=== PATIENT | female | born 1960 ===

== ENCOUNTER 2022-04-30 10:54 | Inpatient (IN) | payer MEDICAID ==
[~2022-04-30] VITALS: Ht 154.9 cm; Wt 55.1 kg
[2022-04-30] MEDS ORDERED: PLAVIX 75MG TAB75 MG PO (14:37)
[2022-04-30] MEDS ORDERED: LIPITOR 40MG TA40 MG PO (14:38)
[2022-04-30] MEDS ORDERED: TOPROL XL 25MG25 MG PO (14:39)
[2022-04-30] MEDS ORDERED: ATIVAN 0.50.5 MG/TAB PO (14:40)
[2022-04-30] MEDS ORDERED: PROAIR RES117 MCG/Ac IH (14:40)
[2022-04-30] MEDS ORDERED: FLONASEALLERGY NS (14:41)
[2022-04-30] MEDS ORDERED: MIRALAX PA17 GM/Dose PO (14:42)
[2022-04-30] MEDS ORDERED: COLACE 100100 MG/CAP PO (14:42)
[2022-04-30] MEDS ORDERED: ZOFRAN ODT4 MG PO (14:43)
[2022-04-30] MEDS ORDERED: ZESTRIL 20MG TA20 MG PO (14:45)
[2022-04-30] MEDS ORDERED: ASPIRIN 81M81 MG/TA2 PO (14:46)
[2022-04-30] MEDS ORDERED: KEPPRA 500MG500 MG PO (14:47)
[2022-04-30] MEDS ORDERED: ZOLOFT 25MG25 MG PO (14:47)
[2022-04-30] MEDS ORDERED: PROTONIX20 MG PO (14:48)
[2022-04-30] MEDS ORDERED: CARAFATE 1GM1 G PO (14:49)
[2022-04-30] MEDS ORDERED: LEVOXYL0.075 MG PO (14:50)
[2022-04-30] MEDS ORDERED: B-12 500 MCG PO (14:51)
[2022-04-30 17:25] VITALS: BP 109/66; PULSE 79; TEMP 99.5
--- NOTE | 2022-04-30 17:52 | NUR ---
New pt arrived via stretcher from [facility] s/p CVA. Pt is able to move all extremities but has rt. sided weakness/hemiparesis. She is alert and oriented and answer questions appropriately. Her skin is intact. Pt reports falling while at [facility] but was not injured during her fall. She has a small incision (healed) on her left chest s/p loop recorder placement on 04/23/22. Per transfer report, pt is incontinent of bowel and bladder, wears pullups during the day and uses a pure wick during sleep. Pt wears glasses and has upper dentures only. She denies having any valuables w/ her. Orientation provided to room/unit/call system. Call light is in her reach. Bed alarm is on.
[2022-04-30 18:00] VITALS: BP 109/66; PULSE 89; TEMP 99.5
--- NOTE | 2022-05-01 05:00 | NUR ---
pt incontinent of bladder x2 tonight, urine very strong, foul smelling. notified Lisa VILLALPANDO, order obtained for straight cath UA, pt has allergy to betadine, so tala area cleansed with soap and water. specimen obtained using 16F st cath and sterile technique. pt tolerated well.
[2022-05-01 05:34] VITALS: BP 105/68; PULSE 88; TEMP 98.6
[2022-05-01 05:34] LABS: COLLECTION METHOD CATHETER
[2022-05-01 05:41] LABS: PH 6.5 (5.0-8.5); URINE APPEARANCE Hazy (CLEAR/HAZY); URINE BLOOD Negative (NEGATIVE); URINE COLOR Yellow (YELLOW); URINE GLUCOSE Negative (NEGATIVE); URINE KETONE Negative (NEGATIVE); URINE NITRATE Positive (NEGATIVE); URINE PROTEIN(semi-quant) Negative (NEGATIVE); URINE UROBILINOGEN 0.2 E.U/dL (0.2-1.0)
[2022-05-01 05:42] LABS: MUCOUS Present (NOT PRESENT); SQUAMOUS EPITHELIAL 0-2 /hpf (0-10); URINE BACTERIA Rare /hpf (NONE SEEN); URINE RBC 0-2 /hpf (0-2)
[2022-05-01 07:12] LABS: CALCIUM 9.3 mg/dL (8.4-10.2); CREATININE, serum 0.88 mg/dL (0.57-1.11); POTASSIUM 4.4 mmol/L (3.5-4.5)
--- NOTE | 2022-05-01 08:59 | NUR ---
PATIENT ALERT AND ORIENTED X4. VSS. PATIENT HERE FOR CVA. PATIENT DENIES ANY PAIN. PATIENT DISPLAYS SOME EXPRESSIVE APHASIA. ASSESSMENT PERFORMED. AM MEDS ADMINISTERED. BED ALARM ACTIVATED. CALL LIGHT IN REACH. PATIENT AWAITING BREAKFAST.
--- NOTE | 2022-05-01 12:02 | NUR ---
stopped by and visited briefly with patient. Nothing else needed at this time.
[2022-05-01 17:20] VITALS: BP 108/60; PULSE 91; TEMP 96.3
--- NOTE | 2022-05-01 17:44 | NUR ---
PATIENT STARTED ON KEFLEX FOR UTI.
--- NOTE | 2022-05-01 20:00 | NUR ---
PT RESTING IN BED A&O. DENIES PAIN. RT SIDE HEMIPARESIS. ABLE TO SPEECH CORRECTION CONSULTANT RT HAND. TOUCH NOSE WITH INDEX FINGER ALTHOUGH TIME FRAME LONG. PT HAS MILDLY DELAYED VERBAL RESPONSE TO QUESTIONS. HAD LOOSE MED BROWN INCONTINENT STOOL. CALL LIGHT IN REACH. BED ALARM SET.
[2022-05-02] VITALS (38 sets, daily range): BP systolic 100–124; BP diastolic 56–73; PULSE 78–136; TEMP 98.3; O2SAT 70–100
--- NOTE | 2022-05-02 06:51 | NUR ---
Shift report received from second shift supervisor RN. Pt sleeping supine in bed. Resp. even and unlabored. Call light within reach. Bed alarm is on.
--- NOTE | 2022-05-02 08:13 | NUR ---
Pt sitting up in bed eating breakfast independently. She denies pain or discomfort. She reports sleeping well during the night. Denies other needs. Call light is in her reach. Bed alarm is on.
[2022-05-02 09:18] LABS: BASO # 0.1 K/mm3 (0.0-0.2); BASO % 1.1 % (0.0-2.0); EOS # 0.5 K/mm3 (0.0-0.7); EOS % 3.7 % (0.0-4.0); GRAN # 7.7 K/mm3 (1.4-6.5); GRAN % 58.4 % (42.2-75.2); HEMATOCRIT 40.1 % (37.0-47.0); HEMOGLOBIN 12.8 g/dl (12.5-16.0); LYMPH # 3.7 K/mm3 (1.2-3.4); LYMPH % 28.2 % (20.0-51.0); MEAN CELL VOLUME 94 fl (80.0-100.0); MEAN CORPUSCULAR HEMOGLOBIN 30 pg (27-31); MEAN CORPUSCULAR HGB CONC 32 g/dl (33.0-37.0); MONO # 1.1 K/mm3 (0.1-0.6); MONO % 8.2 % (1.7-9.3); PLATELET COUNT 676 K/mm3 (130-400); RED BLOOD COUNT 4.29 M/mm3 (4.10-5.30)
--- NOTE | 2022-05-02 09:25 | NUR ---
At approx 0850 nurse in room to check on pt. Pt noted to be holding her breath and clutching her left chest. Pt reporting gas pains and becoming tearful. Pt sat up in bed and charge nurse notified. Charge nurse in room, CAT call made, Hospitalist notified. Nitro given x 3. Zofran given. IV started in LFA by ICU nurse. Pt transferred to ICU. Son Luke Thomas notified.
--- NOTE | 2022-05-02 09:27 | NUR ---
this nurse was called to room by VIANEY Crystal stating patient is c/o chest pain at 0850, personnel supervisor notified and CAT call called at 854, crash cart brought to room and patientplaced on monitor by ICU nurse, at 900 nitro 0.4mg SL given, at 903 Dr Arnold to room, Nitro 0.4mg SL given at 905, lab in to draw blood at 908, Dr Arnold remains at bedside, patient also experiencing nausea and scan amount of emesis, INT started by ICU nurse at 914, Zofran 8mg and Morphine 2mg slow IV and third dose of nitro given, see eMAR for times, EKG was completed, see report gor time, chest xray completed, patient transferred per bed at 09 accompaniened by ICU nurse
[2022-05-02 09:36] LABS: BILIRUBIN,TOTAL 0.3 mg/dL (0.2-1.2); CALCIUM 9.9 mg/dL (8.4-10.2); CREATININE, serum 0.96 mg/dL (0.57-1.11); POTASSIUM 4.5 mmol/L (3.5-4.5); TOTAL PROTEIN 6.7 gm/dL (6.2-8.1)
[2022-05-02 09:42] LABS: TROPONIN-I 0.033 ng/mL (0.00-0.033)
--- NOTE | 2022-05-02 10:10 | NUR ---
Pt belongings taken to ICU Rm 4. Bedside report given to VIANEY Gomez.
[2022-05-03] VITALS (28 sets, daily range): O2SAT 87–98
== END 2022-05-02 09:30 | disposition short-term general hospital (02) | DRG 57 ==
PROVIDERS: Hospitalist; Internal Medicine; ADMIT Physical Medicine & Rehabilitation Sports Medicine
DX: I69.351 Hemiplegia and hemiparesis following cerebral infarction affecting right dominant side (principal); N39.0 Urinary tract infection, site not specified; I50.32 Chronic diastolic (congestive) heart failure; I25.10 Atherosclerotic heart disease of native coronary artery without angina pectoris; I11.0 Hypertensive heart disease with heart failure; E78.5 Hyperlipidemia, unspecified; J30.2 Other seasonal allergic rhinitis; F41.9 Anxiety disorder, unspecified; F32.A Depression, unspecified; Z73.6 Limitation of activities due to disability; R26.89 Other abnormalities of gait and mobility; E03.9 Hypothyroidism, unspecified; R56.9 Unspecified convulsions; Z95.818 Presence of other cardiac implants and grafts; Z87.891 Personal history of nicotine dependence; Z91.041 Radiographic dye allergy status; Z91.012 Allergy to eggs; Z91.018 Allergy to other foods; I69.320 Aphasia following cerebral infarction; I25.2 Old myocardial infarction; Z79.02 Long term (current) use of antithrombotics/antiplatelets; Z79.82 Long term (current) use of aspirin
CPT/HCPCS: J1650; J2270; J2405

== ENCOUNTER 2022-05-05 09:16 | Inpatient (IN) | payer MEDICAID ==
[~2022-05-05] VITALS: Ht 154.9 cm; Wt 59.4 kg
[~2022-05-05 09:16] MED LIST: ASPIRIN 81M81 MG/TA2 PO; ATIVAN 0.50.5 MG/TAB PO; B-12 500 MCG PO; CARAFATE 1GM1 G PO; COLACE 100100 MG/CAP PO; FLONASEALLERGY NS; KEPPRA 500MG500 MG PO; LEVOXYL0.075 MG PO; LIPITOR 40MG TA40 MG PO; MIRALAX PA17 GM/Dose PO; PLAVIX 75MG TAB75 MG PO; PROAIR RES117 MCG/Ac IH; PROTONIX20 MG PO; TOPROL XL 25MG25 MG PO; ZESTRIL 20MG TA20 MG PO; ZOFRAN ODT4 MG PO; ZOLOFT 25MG25 MG PO
[2022-05-05] MEDS ORDERED: PROTONIX 40MG T40 MG PO (09:23)
[2022-05-05] MEDS ORDERED: CEFTIN 250250 MG/TAB PO (09:34)
--- NOTE | 2022-05-05 11:31 | NUR ---
Pt arrived to unit from Surgical. OT in room to shower pt. Pt is alerted and oriented to self, pleasant. Admission assessments completed. Skin is intact. Pt has a healed incision to left chest s/p loop recorder placement prior to her discharge from [facility]. Loop recorder box plugged in. Pt denies any valuables. Orientation provided to room/unit. Call light is in her reach.
[2022-05-05 12:56] VITALS: BP 100/57; PULSE 101; TEMP 98.6
--- NOTE | 2022-05-05 13:02 | NUR ---
Pt sitting up in the recliner watching television. She ate 100% of her lunch independently. MEWS score is 3 at this time. VS reviewed with VIANEY Mix. Pt denies pain, chest pain, difficulty breathing, shortness of breath. Will reassess VS in approx 1 hr. Will continue to monitor. Call light is in her reach. Chair alarm is on.
[2022-05-05 15:33] VITALS: BP 94/42; PULSE 98; TEMP 98.6
--- NOTE | 2022-05-05 17:27 | NUR ---
Pt incontinent of urine. C/o sore area to buttocks. Incontinence care performed. Reddened but blanchable area noted on inner right lower buttock between the buttocks. Barrier cream applied. Skin is intact. Will continue to monitor.
[2022-05-05 17:59] VITALS: BP 100/56; PULSE 60; TEMP 98.2
--- NOTE | 2022-05-05 21:00 | NUR ---
PT SITTING ON SIDE OF BED. INCONTINENT OF URINE. PT CLEANED UP. TELEMEMTRY DC'D PER DR GILLESPIE VIA TD LUGO RN. RT SIDED WEAKNESS. DENIES PAIN. CALL LIGHT IN REACH. BED ALARM SET.
[2022-05-06 05:52] VITALS: BP 118/65; PULSE 87; TEMP 97.9
--- NOTE | 2022-05-06 06:47 | NUR ---
BEDSIDE REPORT DONE ORDER WITH NIGHT NURSE NI
--- NOTE | 2022-05-06 10:06 | NUR ---
Initial visit; Patient thanked [employer] Magistrate for visiting her and offering prayer and god's blessings. Timmy hopes Radha will go dion soon as she wishes to see her dogs and cat.
--- NOTE | 2022-05-06 10:42 | NUR ---
ASSESSMENT DONE ORDER. PATIENT ALERT AND ORIENTED BUT VERY TIRED TODAY AFTER TAKING THE MEDICATION. BLOOD PRESSURE WAS SLIGHTLY HIGHTER THAN BEFORE. INFORM DOCTOR. PATIENT IS ABLE TO MOVE EXTREMITES. LUNG CLEAR. BOWEL SOUND ACTIVE.
--- NOTE | 2022-05-06 11:17 | NUR ---
Has lack of transportation kept you from medical appts, meetings, work, or from getting things needed for daily living? YES, KEPT ME FROM MEDICAL APPTS OR GETTING MEDICATIONS YES, KEPT ME FROM NON-MEDICAL MEETINGS, APPTS, WORK, OR GETTING THINGS How often do you feel lonely or isolated from those around you? SOMETIMES Over the past 5 days, how much of the time has pain made it hard for you to sleep? RARELY OR NOT AT ALL Over the past 5 days, how often have you limited your participation in therapy due to pain? RARELY OR NOT AT ALL Over the past 5 days, how often have you limited your day-to-day activities because of pain? RARELY OR NOT AT ALL Have you had 2 or more falls in the past year or any fall with an injury? YES Did you have major surgery during the 100 days prior to admission? NO
[2022-05-06 17:41] VITALS: BP 98/71; PULSE 91; TEMP 97.8
--- NOTE | 2022-05-06 19:12 | NUR ---
PATIENT HAS BEEN VERY PLEASANT TODAY. NEED HELP GETTING UP FROM CHAIR BUT ABLE TO TRANSFER SELF TO BED WITH [facility]
--- NOTE | 2022-05-06 21:31 | NUR ---
PT RESTING IN BED. DENIES PAIN. RT ARM HEMAPARISIS. CALL LIGHT IN REACH. BED ALARM SET.
[2022-05-07 06:17] VITALS: BP 114/56; PULSE 87; TEMP 97.6
--- NOTE | 2022-05-07 11:08 | NUR ---
ASSESSMENT DONE ORDER. PATIENIT ALERT AND ORIENT BUT SOMETIME CONFUSED.ETING ABOUT 50-70 % OF HER MEALS.
--- NOTE | 2022-05-07 15:56 | NUR ---
[employer] Hel[employer] checked in with patient prior to weekend. Patient isn't sure what questions she has at this time. SW advised patient she would return Tuesday and is here to assist with any discharge planning needs.
[2022-05-07 17:25] VITALS: BP 112/76; PULSE 99; TEMP 98.1
--- NOTE | 2022-05-08 01:52 | NUR ---
Patient assessed around 1914. Alert and oriented, and able to make needs known. Denies having pain and discomfort. Has been incontinent of bladder 3 times so far this shift. Patient stating that he can not sleep, bed is no comfortable. Continues to deny wanting overlay mattress or foam to mattress. Stated she's tired of being in bed, but does not want to go in recliner or wheelchair. Seems upset, stating, "you just wouldn't understand." Asked what this nurse could do to help her or help make her more comfortable, but just states she wants to go home. Encouragment provided, stating that if she continues to work with therapy and get stronger she will hopefully be able to return home. Seems anxious and upset, but refusing Ativan. Refusing Acetaminophen as well. In bed with call light within reach. High fall risk precautions in place.
[2022-05-08 05:01] VITALS: BP 137/73; PULSE 95; TEMP 97.8
--- NOTE | 2022-05-08 06:28 | NUR ---
Patient did not sleep much during the night. Has been incontinent of urine. Incontinent cares provided. Did stand on side of bed for short period of time with staff assistance, which made patient happy. Sitting up on side of bed at this time as requested. Voices no questions, needs, or concerns at this time. Call light within reach.
--- NOTE | 2022-05-08 07:16 | NUR ---
BEDSIDE REPORT DONE ORDER. PATIENT RESTING IN BED WITH CALL LIGHT IN REACH
--- NOTE | 2022-05-08 10:22 | NUR ---
ASSESSMENT DONE ORDER. PATIENT ALERT BUT SLIGHTLY CONFUSED AT TIME. PATIENT STATED MULTIPLE TIME THAT SHE JUST WANTS TO GO HOME. REQUESTED TO GO OUT SIDE TODAY. LUNG CLEAR IN ALL LOBES , BOWEL SOUND ACTIVE IN ALL 4 QUADS. NO EDEMA NOTED.
[2022-05-08 17:59] VITALS: BP 125/63; PULSE 88; TEMP 97.8
--- NOTE | 2022-05-08 18:27 | NUR ---
PATIENT HAD A BOWEL MOVEMENT TODAY IN BED. CHANGE ORDER. PATIENT ABLE TO GET UP AND STAND WITH GAIT BELT AND WALKER. STILL SLIGHTLY UNSTEADY.
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
--- NOTE | 2022-05-09 01:44 | NUR ---
Patient care, medication administration and nursing documentation occurred during a Daylight Savings Time Change.
--- NOTE | 2022-05-09 01:44 | NUR ---
Patient care, medication administration and nursing documentation occurred during a Daylight Savings Time Change.
--- NOTE | 2022-05-09 04:20 | NUR ---
PATIENT RESTING COMFORTABLY AND ASLEEP AT THIS TIME. FACES SCORE OF 0. LAYING SUPINE IN BED. CALL LIGHT IN REACH. BED IN LOWEST POSITION.
[2022-05-09 05:49] VITALS: BP 116/62; PULSE 90; TEMP 98
--- NOTE | 2022-05-09 07:05 | NUR ---
BEDSIDE REPORT DONE ORDER. PATIENT RESTING IN BED
--- NOTE | 2022-05-09 10:30 | NUR ---
ASSESSMENT DONE ORDER. PATIENT HAS BENE RESTING SINCE THIS AM. NO ISSUE WITH PAIN AT THIS TIME. ATE WELL. LUNG CLEAR AND BOWEL SOUND ACTIVE
[2022-05-09 17:58] VITALS: BP 114/61; PULSE 95; TEMP 97.3
--- NOTE | 2022-05-09 19:00 | NUR ---
RECEIVED CHANGE OF SHIFT REPORT FROM DAY SHIFT RN.
[2022-05-10 00:52] VITALS: BP 147/67
[2022-05-10 05:46] VITALS: BP 125/63; PULSE 89; TEMP 97.5
--- NOTE | 2022-05-10 06:39 | NUR ---
CHANGE OF SHIFT REPORT GIVEN TO DAY SHIFT RNTD.
--- NOTE | 2022-05-10 07:06 | NUR ---
Shift report received from maintenance supervisor 2nd shift RN.
--- NOTE | 2022-05-10 14:48 | NUR ---
Marketing Operations Manager met with Patient at bedside to conduct CAre Managment assessment and discuss discharge planning. PAtient verrified the demographic data in Care Managment Assessment labeled Discharge Planning dated 05-03-22. Patient did not endorse further concerns. SW briefed PAtient that the treatment team will conduct a progress review and needs assessment on wednesdays to discuss progress and discharge planning. SW briefed that SW will collaborate with Patient to review the treatment teams notes on that day to assess for discharge needs. Discharge Plan: Pending Team Review for Progress and Discharge Needs.
--- NOTE | 2022-05-10 15:48 | NUR ---
Admission QIM scores were reviewed by the team. Code of 3 chosen for oral hygiene was determined by team discussion to be the most usual performance before interventions for this patient during the assessment period. Code of 2 chosen for toilet hygiene was determined by team discussion to be the most usual performance before interventions for this patient during the assessment period. Code of 2 chosen for toilet transfer was determined by team discussion to be the most usual performance before interventions for this patient during the assessment period. Code of 3 chosen for putting on/taking off footwear was determined by team discussion to be the most usual performance before interventions for this patient during the assessment period. Code of 3 chosen for rolling left to right was determined by team discussion to be the most usual performance before interventions for this patient during the assessment period. Code of 3 chosen for sit to lying was determined by team discussion to be the most usual performance before interventions for this patient during the assessment period. Code of 3 chosen for lying to sitting on side of bed was determined by team discussion to be the most usual performance before interventions for this patient during the assessment period. Code of 2 chosen for sit to stand was determined by team discussion to be the most usual performance for this patient during the discharge assessment period. Code of 2 chosen for chair/bed to chair transfer was determined by team discussion to be the most usual performance before interventions for this patient during the assessment period. Code of 2 chosen for walk 10 feet was determined by team discussion to be the most usual performance for this patient during the discharge assessment period.--PD Jamel
[2022-05-10 18:34] VITALS: BP 122/67; PULSE 86; TEMP 98
--- NOTE | 2022-05-10 18:46 | NUR ---
RECEIVED CHANGE OF SHIFT REPORT FROM DAY SHIFT RN.
--- NOTE | 2022-05-11 01:38 | NUR ---
PATIENT AMBULATED TO BATHROOM PRIOR TO HS TIME WITH SOME UNSTEADY GAIT OBSERVED, OBSERVED RLE SLIGHT SLOWED STRIDE WITH WALKING, NO LEFT LEANING OR LISTING OBSERVED WITH WALKING.
[2022-05-11 05:20] VITALS: BP 116/60; PULSE 87; TEMP 98.2
--- NOTE | 2022-05-11 06:55 | NUR ---
CHANGE OF SHIFT REPORT GIVEN TO DAY SHIFT RNTD.
--- NOTE | 2022-05-11 07:08 | NUR ---
Shift report received from night coordinator RN.
--- NOTE | 2022-05-11 07:32 | NUR ---
Pt sitting up in bed eating breakfast independently. She denies pain/discomfort. Denies chest pain or nausea. No other needs at this time. Call light is in her reach. Bed alarm is on.
--- NOTE | 2022-05-11 08:42 | NUR ---
CGA/SBA provided as pt stood up from bed, ambulated to toilet w/ a FWW, and then to the sink for morning hygiene. SBA during hygiene and clothing mgmt. Pt denies pain, chest pain, abd. pain. Pt is off the unit with OT.
[2022-05-11 17:46] VITALS: BP 120/55; PULSE 83; TEMP 98.7
[2022-05-12 05:56] VITALS: BP 129/54; PULSE 84; TEMP 97.9
--- NOTE | 2022-05-12 07:21 | NUR ---
CHANGE OF SHIFT REPORT GIVEN TO DAY SHIFT RNPATIENCE.
--- NOTE | 2022-05-12 08:00 | NUR ---
PATIENT IS A&O. VSS. DENIES COMPLAINTS OF PAIN OR N/V. NOTED RIGHT SIDE WEAKNESS POST CVA. 1 ASSIST BUT DRAGS RLE SOME. PT/OT/ST CONSULTED. HEAD TO TOE ASSESSMENT COMPLETE. AM MEDS GIVEN. BREAKFAST TRAY AT BEDSIDE. NO OTHER NEEDS AT THIS TIME. CALL LIGHT IN REACH. BED ALARM ON.
--- NOTE | 2022-05-12 16:11 | NUR ---
Coding Auditor met with Patient at bedside to review treatment team notes as well as review discharge planning. SW collaborated with Patient to review the team notes, identifying increases and decreases in her perfrmance since eval. SW briefed Patient that her tentative discharge date is 05-21 and that it is reccomended to have a family meeting in the upcoming week.
[2022-05-12 18:15] VITALS: BP 109/52; PULSE 86; TEMP 97.4
--- NOTE | 2022-05-12 20:00 | NUR ---
PATIENT IS RESTING IN BED.PATIENT IS ALERT.PATIENT REPORTS GENERALIZED BODY PAINS DUE TO PT.PATIENT TAKES PILLS WHOLE WITH NO TROUBLE.PATIENT IS UP WITH ONE WITH A WALKER AND GB.PATIENT HAS ON RT SIDED WEAKNESS.BED ALARM IS ON.NO OTHER NEEDS THIS TIME.
--- NOTE | 2022-05-13 05:22 | NUR ---
PATIENT SLEPT THROUGH THE NIGHT.PATIENT DENIES PAIN.SAFETY MEASURES IN PLACE.NO OTHER NEEDS AT THIS TIME.
[2022-05-13 06:03] VITALS: BP 126/54; PULSE 73; TEMP 97.9
[2022-05-13 17:26] VITALS: BP 127/71; PULSE 92; TEMP 97.7
--- NOTE | 2022-05-13 18:23 | NUR ---
Shift summary 0700-present: VSS, denies pain. Ambulates well with SBA and walker. R arm/leg weakness continue, pt compensating well.
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
[2022-05-14 05:44] VITALS: BP 132/73; PULSE 68; TEMP 97.6
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
[2022-05-14 05:53] LABS: COLLECTION METHOD CLEAN CATCH
[2022-05-14 06:01] LABS: URINE APPEARANCE Clear (CLEAR/HAZY); URINE BLOOD TRACE-INTACT (NEGATIVE); URINE COLOR Yellow (YELLOW); URINE GLUCOSE Negative (NEGATIVE); URINE KETONE Negative (NEGATIVE); URINE NITRATE Negative (NEGATIVE); URINE PROTEIN(semi-quant) Negative (NEGATIVE); URINE UROBILINOGEN 0.2 E.U/dL (0.2-1.0)
[2022-05-14 06:05] LABS: SQUAMOUS EPITHELIAL 0-2 /hpf (0-10); URINE BACTERIA Rare /hpf (NONE SEEN); URINE RBC 0-2 /hpf (0-2)
[2022-05-14 06:57] LABS: BASO # 0.1 K/mm3 (0.0-0.2); BASO % 1.1 % (0.0-2.0); EOS # 0.7 K/mm3 (0.0-0.7); GRAN # 4.5 K/mm3 (1.4-6.5); GRAN % 48.2 % (42.2-75.2); HEMOGLOBIN 11.4 g/dl (12.5-16.0); LYMPH # 3.3 K/mm3 (1.2-3.4); LYMPH % 35.6 % (20.0-51.0); MEAN CELL VOLUME 93 fl (80.0-100.0); MEAN CORPUSCULAR HEMOGLOBIN 31 pg (27-31); MEAN CORPUSCULAR HGB CONC 34 g/dl (33.0-37.0); MEAN PLATELET VOLUME 10.1 fl (7.4-10.4); MONO # 0.7 K/mm3 (0.1-0.6); MONO % 7.6 % (1.7-9.3); PLATELET COUNT 529 K/mm3 (130-400); RED BLOOD COUNT 3.66 M/mm3 (4.10-5.30); REDCELL DISTRIBUTION WIDTH-CV 13.7 % (11.5-14.5)
[2022-05-14 07:02] LABS: HEMATOCRIT 33.9 % (37.0-47.0)
[2022-05-14 07:10] LABS: CALCIUM 8.8 mg/dL (8.4-10.2); CREATININE, serum 0.72 mg/dL (0.57-1.11); POTASSIUM 3.8 mmol/L (3.5-4.5)
[2022-05-14 17:14] VITALS: BP 131/73; PULSE 80; TEMP 97.8
--- NOTE | 2022-05-14 19:15 | NUR ---
Shift summary 0630-present: Pt Ox4, denies pain. Up with 1A/walker. Uses call light appropriately. Is continent of bowel and bladder. Labs collected this AM, UA negative and keppra level pending. Pt has questions about diagnosis and prognosis. Supplied educational material and discussed with her. Pt asks questions and is able to relate the clinical effects listed in literature, with her own deficits.
--- NOTE | 2022-05-14 20:00 | NUR ---
PT AWAKE, SITTING AT EDGE OF BED. HAS MILD RT ARM/LEG WEAKNESS. TRANSFERS WELL WITH ONE ASSIST AND WALKER, GAIT STEADY. HAS BM AND VOIDS, BACK TO BED. HS MEDS GIVEN. PT DENIES NEEDS AT THIS TIME.
[2022-05-15 05:06] VITALS: BP 120/52; PULSE 72; TEMP 97.7
[2022-05-15 05:56] VITALS: BP 105/56; BP 115/56; PULSE 77; TEMP 97.8
--- NOTE | 2022-05-15 06:57 | NUR ---
Shift report received from night RN. Pt sleeping in right side lying position in bed. Call light is in her reach. Bed alarm is on.
--- NOTE | 2022-05-15 09:35 | NUR ---
Pt is off the unit for Group Therapy.
[2022-05-15 16:52] VITALS: BP 122/72; PULSE 76; TEMP 98
--- NOTE | 2022-05-15 19:30 | NUR ---
PT SITTING UP IN WC. WATCHING TV. CHEERFUL AND TALKATIVE. HAD VISITORS TODAY. NO NEEDS AT THIS TIME. CALL IGHT IN REACH. CHAIR ALARM SET.
--- NOTE | 2022-05-15 21:00 | NUR ---
RT SIDED WEAKNESS. MIN 1 ASSIST WITH WALKER TO BR. ABLE TO MANAGE OWN TOILETING TASKS. VOIDING W/O DIFFICULTY. TO BED. CALL LIGHT IN REACH. BED ALARM SET.
[2022-05-16 05:53] VITALS: BP 126/55; PULSE 75; TEMP 97.8
--- NOTE | 2022-05-16 07:10 | NUR ---
Shift report received from hotel night auditor RN
--- NOTE | 2022-05-16 10:45 | NUR ---
SBA provided as pt stood up from her bed and ambulated to the bathroom using a FWW. Pt continent of bowel & bladder in toilet. She denies pain or discomfort. Pt sitting up in her wheelchair at her request to work on some crosswords. She denies other needs. Call light is in her reach. Chair alarm is on.
--- NOTE | 2022-05-16 12:12 | NUR ---
Director Professional Services rounds: Patient began at [facility] in mid March and then moved here for rehab. Patient lives in [place], close to [facility]. Patient has 24 children, grandchildren, and great-grandchildren. She believes #25 [address] on the [address] and they just haven't told her yet. We spoke about intersessory prayer. Patient realized that she could use her time in the hospital to pray for others. This realization made her eyes light up. Patient showed the list of "yucky" foods she has made since being in the hospital. We discussed how steak sauce might be used to make her hamburger on Tuesday taste better. called nutrition services. They do not have steak sauce. left a note for week-day Chaplains, requesting that they check with the hospital restaurant (not open on weekends) to see if they can get packets of steak sauce for her. also spoke with Nurse who said the break room does not have steak sauce but she believes it does have BBQ sauce. Patient said this would be a good second option. prayed for Patient and provided her with a New Testament with Psachiomas and an old devotional. Patient expressed her gratitude and was looking up scriptures she is familiar with as was leaving.
--- NOTE | 2022-05-16 13:52 | NUR ---
Fall: FIXED WING PILOT informed nurse at 1330 that as she was attempting to assist pt with a transfer from w/c to toilet using bathroom grab bars, the pt's right foot "buckled beneath her" and FIXED WING PILOT lowered the pt to a seated position on the bathroom floor. FIXED WING PILOT then assisted pt back to a standing position and transferred pt to the toilet. When nurse was notified, pt had been transferred back to her bed in a seated position. Pt denies pain/discomfort. No head injury or LOC reported by the pt or FIXED WING PILOT. Pt does report "I don't think I had a seizure but I think I blacked out". When asked why she feels this way, pt states "because I don't remember going down". VSS. Dr. Ledesma notified. Attempted to notify pt's son, but voicemail for [facility] comes on the line, so unable to notify at this time. Charge nurse notified.
[2022-05-16 14:11] VITALS: BP 143/68; PULSE 80; TEMP 97.7
[2022-05-16 17:03] VITALS: BP 120/77; PULSE 85; TEMP 97.6
--- NOTE | 2022-05-16 21:30 | NUR ---
PT SITTING IN WC. A&0. ASSISTED TO BR. VOIDED W/O DIFFIULTY. DENIES ANY DIZZINESS. TYLENOL GIVEN FOR GENERALIZED ACHES. CALL LIGHT IN REACH. CHAIR ALARM SET.
[2022-05-17 05:20] VITALS: BP 117/55; PULSE 78; TEMP 99
--- NOTE | 2022-05-17 17:04 | NUR ---
Administrative Coordinator was contacted by Raquel, patient's INNA (ph#[phone]) who advised she is to patient's son, Luke. DEEPA reviewed discharge date and plan with Raquel, then scheduled family meeting for Tuesday at 1045.
[2022-05-17 17:13] VITALS: BP 134/75; PULSE 80; TEMP 98.3
[2022-05-18 05:06] VITALS: BP 143/73; PULSE 81; TEMP 98.2
--- NOTE | 2022-05-18 06:55 | NUR ---
Shift report received from slot shift supervisor RN.
--- NOTE | 2022-05-18 07:41 | NUR ---
Pt ate 100% of breakfast independently. SBA provided as pt stood from bed and amublated to the bathroom with FWW, gait belt. SBA provided for hygiene and clothing mgmt. Pt supervised as she stood at sink w/ FWW for oral hygiene. She denies pain/discomfort, chest pain, abd. pain. Pt ambulated back to bed to wait for a.m. ST. She denies other needs. Call light is in her reach. Bed alarm is on.
--- NOTE | 2022-05-18 10:21 | NUR ---
Pt is off the unit for Group Therapy.
[2022-05-18 17:07] VITALS: BP 126/67; PULSE 78; TEMP 97.9
--- NOTE | 2022-05-18 19:36 | NUR ---
pt sitting in chair working on word puzzles. meds given and assessment complete. fall precautions in place. pt denies needs at this time. call light in reach.
[2022-05-19 05:10] VITALS: BP 148/75; PULSE 73; TEMP 98.1
--- NOTE | 2022-05-19 06:58 | NUR ---
BEDSIDE REPORT DONE ORDER WIT NIGHT NURSE
--- NOTE | 2022-05-19 11:04 | NUR ---
ASSESSMENT DONE ORDER, PATINT ALERT AND ORIENTED. ABLE TO WHEEL SELF AROUND IN WHEELCHAIR. ABLE TO STAND AND WALKER WITH MIN ASSISTANCE. STILL HAVING ISSUE WITH AFFECT ARM.
--- NOTE | 2022-05-19 15:49 | NUR ---
Building Services Engineer participated in family meeting which included patient's daughter in law, Vianca by phone. Rehab physician and therapy team provided report on patient's progress. Discharge date was discussed as the team feels patient would benefit from additional time on the rehab unit. Patient is eager to get home, but is agreeable to a discharge date of Tuesday the . Recommendation is for Home Health nursing and outpatient PT/OT. SW followed up with patient to provide copy of team conference notes. SW also provided Medicare.gov list of HH agencies and patient selected [facility]. Patient would like to do outpatient PT/OT at [facility]. Patient needs a front wheeled walker and is agreeable to have it ordered through [facility].
[2022-05-19 17:52] VITALS: BP 129/68; PULSE 84; TEMP 98.2
--- NOTE | 2022-05-19 21:00 | NUR ---
PT RESTING IN BED. WATCHING TV. SBA TO BR W/ WALKER. MANAGED OWN TOILETING TASKS. BACK TO BED. RT SIDED WEAKNESS. SEE MAR FOR TYLENOL GIVEN FOR GENERAL ACHES. CALL LIGHT IN REACH. BED ALARM SET.
--- NOTE | 2022-05-20 02:41 | NUR ---
PT SLEEPING. NO DISTRESS.
[2022-05-20 05:40] VITALS: BP 118/58; PULSE 75; TEMP 98.8
--- NOTE | 2022-05-20 06:40 | NUR ---
BEDSIDE REPORT DONE ORDER WITH NIGHT NURSE NI
--- NOTE | 2022-05-20 10:34 | NUR ---
ASSESSMENT DONE ORDER. PATIENT ALERT AND ORIENT X 4 WTIH NO MEMORY ISSUE. PATIENT ABLE TO GET UP WITH WALKER BUT RIGHT SIDE STILL SLIGHTLY SLUGISH, PATIENT STILL WEAK BUT ABLE TO MOVE ARM AND LEG.
--- NOTE | 2022-05-20 13:30 | NUR ---
Salesperson Hosiery contacted Leonid at [facility] and faxed walker referral. SW advised Leonid that discharge date is Tuesday.
[2022-05-20 17:48] VITALS: BP 112/59; PULSE 82; TEMP 98.5
--- NOTE | 2022-05-20 22:41 | NUR ---
PT SITTING ON SIDE OF BED DOING A PUZZLE. A&0. TYLENOL GIVEN FOR GENERALIZED ACHES. NO OTHER NEEDS AT THIS TIME. CALL LIGHT IN REACH. BED ALARM SET.
[2022-05-21 05:27] VITALS: BP 140/75; PULSE 80; TEMP 97.4
--- NOTE | 2022-05-21 06:47 | NUR ---
BEDSIDE REPORT DONE ORDER WITH NIGHT NURSE NI
--- NOTE | 2022-05-21 11:39 | NUR ---
ASSESSMENT DONE ORDER PATIENT ALERT AND ORIENTED. ABLE TO MAKE NEEDS KNOWN. PATIENT ABLE TO GET UP WITH OUT ASSISTANCE BUT USEWALKER AND GAIT BELT. PATIEN ABLE TO USE WHEELCHAIR AND WHEEL SELF AROUND. LUNG CLEAR. BOWEL SOUND ACTIVE.
--- NOTE | 2022-05-21 15:30 | NUR ---
Sandblaster Supervisor met with patient to check in prior to the weekend. Patient wanted to make sure that her follow up appointments would be scheduled prior to discharge. SW provided assurance that they would be. Patient had no further questions or concerns. DEEPA spoke with OT who advised patient may need rollator instead of FWW. SW will update order and AVCHM on Tuesday. Patient set for discharge Tuesday.
[2022-05-21 17:50] VITALS: BP 139/75; PULSE 80; TEMP 97.5
--- NOTE | 2022-05-21 19:43 | NUR ---
CHANGE OF SHIFT REPORT FROM DAY SHIFT RN.
[2022-05-22 05:34] VITALS: BP 132/61; PULSE 74; TEMP 97.7
--- NOTE | 2022-05-22 07:15 | NUR ---
Shift report received from maintenance technician 3rd shift RN.
--- NOTE | 2022-05-22 07:28 | NUR ---
CHANGE OF SHIFT REPORT GIVEN TO DAY SHIFT RNTD.
--- NOTE | 2022-05-22 08:40 | NUR ---
SBA provided as pt stood up from bed and ambulated to the bathroom using a rolling walker. Gait steady. SBA provided as pt toilet and completed bathroom hygiene and clothing mgmt. She denies pain or discomfort. Had a GIL overnight but currently denies. Pt sitting in wheelchair at the sink to independently complete oral hygiene. She denies other needs. Call light is in her reach. Chair alarm is on.
--- NOTE | 2022-05-22 09:30 | NUR ---
Pt is off the unit for Group Therapy.
--- NOTE | 2022-05-22 11:58 | NUR ---
Fisher Swordfish rounds: Patient was leaving her room with a staff member from physical therapy. No Fisher Swordfish visit completed.
[2022-05-22 17:03] VITALS: BP 141/63; PULSE 93; TEMP 98.5
--- NOTE | 2022-05-22 19:10 | NUR ---
RECEIVED CHANGE OF SHIFT REPORT FROM DAY SHIFT RN.
[2022-05-23 05:11] VITALS: BP 122/59; PULSE 80; TEMP 98.1
--- NOTE | 2022-05-23 07:21 | NUR ---
CHANGE OF SHIFT REPORT GIVEN TO DAY SHIFT RNJARROD.
--- NOTE | 2022-05-23 12:03 | NUR ---
Water Meter Mechanic rounds: Patient has the devotional and New Testament given to her by last week. She has marked several words and written their meanings near them. Patient had "a lot of questions." She asked several questions based upon her readings in both the devotional and the bible. provided some answers and helped Patient to learn some answers for herself. An RN looked into the room because the door was closed. Patient and RN are playing a game of taking vacations in their heads. prayed for Patient and for her expected return home this week.
--- NOTE | 2022-05-23 15:51 | NUR ---
Shift summary: VSS, Ox4, denies pain. Up to WC PRN. Uses 4 wheeled walker to ambulate SBA in room. Voiding without difficulty, BM x 2.
[2022-05-23 17:04] VITALS: BP 121/89; PULSE 82; TEMP 98.1
--- NOTE | 2022-05-23 18:54 | NUR ---
Shift report to VIANEY Petty.
--- NOTE | 2022-05-23 19:00 | NUR ---
RECEIVED CHANGE OF SHIFT REPORT FROM DAY SHIFT RN.
[2022-05-24 05:47] VITALS: BP 121/59; PULSE 73; TEMP 98.1
--- NOTE | 2022-05-24 07:09 | NUR ---
CHANGE OF SHIFT REPORT GIVEN TO DAY SHIFT RNTD.
--- NOTE | 2022-05-24 07:10 | NUR ---
Shift report received from table games shift manager RN.
--- NOTE | 2022-05-24 10:34 | NUR ---
Pt currently working w/ OT for a shower. Pt reporting intermittent cramping in her RLE for the last 24 hours - will start gabapentin as HS. Will continue to monitor.
--- NOTE | 2022-05-24 11:16 | NUR ---
PT is off the unit for PT.
--- NOTE | 2022-05-24 15:09 | NUR ---
Pt sitting up in her wheelchair working on a puzzle. She is looking forward to discharging home later this week. She denies pain/discomfort, chest pain. Denies other needs. Call light is in her reach. Chair alarm is on.
--- NOTE | 2022-05-24 15:54 | NUR ---
Institutional Custodian contacted [facility] and faxed referral for Nursing. DEEPA explained to that patient will receive therapy as an outpatient due to her payer source, Medicaid. DEEPA then contacted [facility] and faxed updated DME order to reflect recommendation for rollator. Leonid at [facility] advised they can still deliver walker on Tuesday. DEEPA requested documentation for need to be completed by Rehab Physician. DEEPA met with patient to check in. Patient has no questions or concerns at this time. Patient stated she will be like "the Flash" with the rollator. Patient joked with SW that now she can keep up with the neighborhood children.
[2022-05-24 17:30] VITALS: BP 128/56; PULSE 79; TEMP 98.6
--- NOTE | 2022-05-24 19:54 | NUR ---
pt sitting in chair. meds given and assessment complete. assisted to bathroom, steady gate w walker. call light in reach. no needs at this time.
[2022-05-25 04:34] VITALS: BP 127/66; PULSE 83; TEMP 98
--- NOTE | 2022-05-25 06:50 | NUR ---
Shift report received from night monitor RN.
--- NOTE | 2022-05-25 10:05 | NUR ---
Has lack of transportation kept you from medical appts, meetings, work, or from getting things needed for daily living? YES, MEDICAL AND NON MEDICAL How often do you feel lonely or isolated from those around you? OFTEN Over the past 5 days, how much of the time has pain made it hard for you to sleep? OCCASIONALLY Over the past 5 days, how often have you limited your participation in therapy due to pain? RARELY/NOT AT ALL Over the past 5 days, how often have you limited your day-to-day activities because of pain? RARELY/NOT AT ALL
--- NOTE | 2022-05-25 14:16 | NUR ---
Initial visit; Patient thanked Clinical Nursing Director for looking in on her and offering blessings and encouragement and to keep her in Clinical Nursing Director's prayers.
--- NOTE | 2022-05-25 16:16 | NUR ---
Sports Medicine Specialist was contacted by Leonid at [facility] who advised Medicaid would not cover a rollator for patient. FWW to be ordered and delivered tomorrow. SW met with patient to provide above update and she is agreeable to this.
[2022-05-25 17:43] VITALS: BP 135/68; PULSE 83; TEMP 98.4
--- NOTE | 2022-05-25 19:50 | NUR ---
assisted pt to bathroom and to bed. meds given and assessment complete. pt denies needs. call light in reach.
[2022-05-26 05:25] VITALS: BP 133/64; PULSE 96; TEMP 97.4
--- NOTE | 2022-05-26 06:58 | NUR ---
Shift report received from night shift manager RN.
[2022-05-26] MEDS ORDERED: PLAVIX 75MG TAB75 MG PO (09:04)
[2022-05-26] MEDS ORDERED: TOPROL XL 25MG25 MG PO (09:05)
[2022-05-26] MEDS ORDERED: ZESTRIL 20MG TA20 MG PO (09:05)
[2022-05-26] MEDS ORDERED: LIPITOR 40MG TA40 MG PO (09:05)
[2022-05-26] MEDS ORDERED: NEURONTIN100 MG/CAP PO (09:06)
[2022-05-26] MEDS ORDERED: ZOLOFT 25MG25 MG PO (09:06)
[2022-05-26] MEDS ORDERED: KEPPRA 500MG500 MG PO (09:06)
[2022-05-26] MEDS ORDERED: ASPIRIN 81M81 MG/TA2 PO (09:06)
[2022-05-26] MEDS ORDERED: COLACE 100100 MG/CAP PO (09:07)
[2022-05-26] MEDS ORDERED: CARAFATE 1GM1 G PO (09:08)
[2022-05-26] MEDS ORDERED: B-12 500 MCG PO (09:08)
[2022-05-26] MEDS ORDERED: PROTONIX 40MG T40 MG PO (09:08)
[2022-05-26] MEDS ORDERED: LEVOXYL0.075 MG PO (09:08)
--- NOTE | 2022-05-26 10:57 | NUR ---
Pt's son is here. DC Summary reviewed with the pt and her son. Discussed upcoming follow up appointments. They had no further questions. Belongings were gathered by the pt. Home meds returned to the pt. Pt escorted off unit via wheelchair and seatbelted for the ride home.
--- NOTE | 2022-05-26 13:11 | NUR ---
Sales And Marketing Director contacted the [facility] and was advised they only have outpatient PT available. DEEPA scheduled first appointment for 06/02/22 at 1500. Next closest therapy provider is [facility]. DEEPA met with patient who advised she would not have transportation to for therapy appointments. Plan will be just for PT. DEEPA confirmed that walker was delivered to the room. DEEPA faxed discharge orders to Home Health and contacted them to give them the neighbor's number for scheduling as patient currently does not know where her phone is. DEEPA also faxed referral with orders to the [facility].
--- NOTE | 2022-05-27 13:15 | NUR ---
Discharge QIM scores were reviewed by the team. Code of 6 chosen for eating was determined by team discussion to be the most usual performance for this patient during the discharge assessment period. Code of 6 chosen for toilet hygiene was determined by team discussion to be the most usual performance for this patient during the discharge assessment period. Code of 6 chosen for toilet transfer was determined by team discussion to be the most usual performance for this patient during the discharge assessment period. Code of 6 chosen for 1 step was determined by team discussion to be the most usual performance for this patient during the discharge assessment period. Code of 6 chosen for 4 step was determined by team discussion to be the most usual performance for this patient during the discharge assessment period.--Marii Temple,
== END 2022-05-26 11:10 | disposition home health service (06) | DRG 57 ==
PROVIDERS: Internal Medicine; ADMIT Physical Medicine & Rehabilitation Sports Medicine
DX: I69.351 Hemiplegia and hemiparesis following cerebral infarction affecting right dominant side (principal); N39.0 Urinary tract infection, site not specified; I50.32 Chronic diastolic (congestive) heart failure; I69.320 Aphasia following cerebral infarction; I25.2 Old myocardial infarction; I25.10 Atherosclerotic heart disease of native coronary artery without angina pectoris; B96.20 Unspecified Escherichia coli [E. coli] as the cause of diseases classified elsewhere; R56.9 Unspecified convulsions; F32.A Depression, unspecified; F41.9 Anxiety disorder, unspecified; E03.9 Hypothyroidism, unspecified; D64.89 Other specified anemias; E87.6 Hypokalemia; J30.2 Other seasonal allergic rhinitis; K21.9 Gastro-esophageal reflux disease without esophagitis; I69.312 Visuospatial deficit and spatial neglect following cerebral infarction; E78.5 Hyperlipidemia, unspecified; I65.22 Occlusion and stenosis of left carotid artery; R26.89 Other abnormalities of gait and mobility; Z73.6 Limitation of activities due to disability; Z79.899 Other long term (current) drug therapy; I69.392 Facial weakness following cerebral infarction; I69.322 Dysarthria following cerebral infarction; Z95.818 Presence of other cardiac implants and grafts; D75.839 Thrombocytosis, unspecified; I11.0 Hypertensive heart disease with heart failure
CPT/HCPCS: J1650

== ENCOUNTER → 2022-06-23 | Outpatient (CLI) | payer MEDICAID ==
[~2022-06-23] MED LIST changes: +CEFTIN 250250 MG/TAB PO; +NEURONTIN100 MG/CAP PO; +PROTONIX 40MG T40 MG PO
== END ==
LOC: MHCPAIN 10:36
DX: M79.2 Neuralgia and neuritis, unspecified (principal); I69.90 Unspecified sequelae of unspecified cerebrovascular disease; I69.351 Hemiplegia and hemiparesis following cerebral infarction affecting right dominant side
CPT/HCPCS: G0463